=== PATIENT | female | born 1990 | race Caucasian/White ===

== ENCOUNTER 2018-10-13 17:10 | Emergency (ER) | payer OTHER, SELFPAY ==
[2018-10-13 17:13] VITALS: BP 127/71; PULSE 110; RESP 14; TEMP 37.1; O2SAT 99; BMI 29.0
--- NOTE | 2018-10-13 20:17 | ED_ITS ---
HPI - URI/Sore Throat <SHERRI Kay - Last Filed: 10/13/18 20:17> General Chief Complaint: Upper Respiratory Symptoms Stated Complaint: THROAT SWELLING AND FEVER Time Seen by Provider: 10/13/18 17:47 Source: patient Mode of arrival: ambulatory Limitations: no limitations History of Present Illness HPI Narrative: The patient is a 28-year-old female who presents with a chief complaint of losing her voice, sore throat congestion and ear pressure. She states this has been going on since Wednesday. She feels like she has fevers, as high as up to 102. She is concerned she has strep throat. She complains of nasal congestion and states she is susceptible to sinus infections. She states she feels like her throat is hot and swollen. She has taken some [id number]-[id number] medication to feel better. She denies any abdominal pain, nausea vomiting or diarrhea. Related Data Previous Rx's Medication Instructions Recorded benzonatate [Tessalon Perles] 100 mg PO BID PRN #20 cap 10/13/18 Allergies Allergy/AdvReac Type Severity Reaction Status Date / Time No Known Drug Allergies Allergy Verified 10/13/18 17:18 Review of Systems <SHERRI Kay - Last Filed: 10/13/18 20:17> Review of Systems GENERAL: See HPI HEENT: See HPI RESPIRATORY: Denies dyspnea, cough, wheezing, hemoptysis, sputum. CARDIOVASCULAR: Denies chest pain, palpitations, orthopnea, edema, GASTROINTESTINAL: Denies nausea, vomiting, abdominal pain, diarrhea, constipation, melena. : Denies dysuria, frequency, incontinence, hematuria, urinary retention. MUSCULOSKELETAL: denies weakness, joint pain, or bony pain SKIN: Denies rash, skin lesions, or other NEUROLOGIC: Denies weakness, headache, numbness, change in speech, confusion, seizures, incoordination. PSYCHIATRIC: No concerning psychosocial issues. 12 point review of systems is negative except for those stated above PFSH <SHERRI Kay - Last Filed: 10/13/18 20:17> Social History Smoking Status: Unknown if ever smoked Social History Smoking Status: Unknown if ever smoked Exam <SHERRI Kay - Last Filed: 10/13/18 20:17> Narrative Exam Narrative: GENERAL: This is a well-nourished, well-developed patient, in no acute distress HEAD: Atraumatic. Normocephalic. No temporal or scalp tenderness. EYES: Pupils equal round and reactive. Extraocular motions intact. No scleral icterus. No injection or drainage. ENT: Nose without bleeding, purulent drainage or septal hematoma. Throat without erythema, tonsillar hypertrophy or exudate. Uvula midline. Airway patent. Bilateral ear canals have cerumen impaction. TMs are barely visible, but appeared to be munoz. Bilateral ear canals within normal limits. Comp also noted in throat. NECK: Trachea midline. No JVD or lymphadenopathy. Supple, nontender, no meningeal signs. CARDIOVASCULAR: Regular rate and rhythm without murmurs, gallops, or rubs. RESPIRATORY: Clear to auscultation. Breath sounds equal bilaterally. No wheezes, rales, or rhonchi. Occasional cough noted on exam. No accessory muscle use. No stridor. No retractions. GASTROINTESTINAL: Abdomen soft, non-tender, nondistended. No hepato- splenomegaly, or palpable masses. No guarding. EXTREMITIES: No clubbing, cyanosis, or edema. No joint tenderness, effusion, or edema noted. BACK: Nontender without deformity or crepitance. No flank tenderness. NEURO: AOx3. SKIN: No rash or erythema. Initial Vital Signs Initial Vital Signs: Vital Signs Temperature 98.8 F 10/13/18 17:13 Pulse Rate 110 H 10/13/18 17:13 Respiratory Rate 14 10/13/18 17:13 Blood Pressure 127/71 10/13/18 17:13 Pulse Oximetry 99 10/13/18 17:13 <Briana Delcaruz MD - Last Filed: 10/13/18 20:53> Initial Vital Signs Initial Vital Signs: Vital Signs Temperature 98.8 F 10/13/18 17:13 Pulse Rate 110 H 10/13/18 17:13 Respiratory Rate 14 10/13/18 17:13 Blood Pressure 127/71 10/13/18 17:13 Pulse Oximetry 99 10/13/18 17:13 Course <JESSA Kay-BC - Last Filed: 10/13/18 20:17> Vital Signs - 8 hr 10/13/18 17:13 Temperature 98.8 F Pulse Rate 110 H Respiratory Rate 14 Blood Pressure 127/71 Pulse Oximetry 99 <Briana Delacruz MD - Last Filed: 10/13/18 20:53> Vital Signs - 8 hr 10/13/18 17:13 Temperature 98.8 F Pulse Rate 110 H Respiratory Rate 14 Blood Pressure 127/71 Pulse Oximetry 99 MDM - URI/Sore Throat <JESSA Kay-BC - Last Filed: 10/13/18 20:17> Lab Data Point of Care Testing Rapid Strep A Negative MDM Narrative Medical decision making narrative: The patient is a 28-year-old female who presents with chief complaint of sore throat and fever. She is afebrile on arrival. She has a negative strep test. Her exam was traits no acute bacterial etiology, likely viral, especially with losing her voice and the combination of sore throat and cough. The patient states she is susceptible to sinus infections, but I discussed that 4 days of symptoms do not warrant antibiotic treatment at this time. I discussed the use of sinus rinse, Flonase, Cepacol. I did give her a prescription of Tessalon Perles for cough. I discussed at length follow up with primary care provider especially if her symptoms continue. Discussed come back to ER for any acute concerns such as chest pain or shortness of breath. <Briana Delacruz MD - Last Filed: 10/13/18 20:53> Lab Data Point of Care Testing Rapid Strep A Negative Discharge Plan Departure Patient Disposition: Home Clinical Impression: Viral infection Discharge Date/Time: 10/13/18 18:35 Interventions: ED Discharge Assessment Last Done: 10/13/18 18:35 Instructions: DI for Viral Upper Respiratory Infection -- Adult Activity Restrictions/Additional Instructions: Your strep test was negative today. I suggest supportive measures such as Flonase, sinus rinse and Cepacol lozenges. I have given her prescription of a cough medicine. I suggest continuing [id number]-[id number] measures as well as honey and lemon. Please monitor for inability keep down fluids, continuing of symptoms for 2 weeks. Please follow up with primary care provider. Prescriptions: New benzonatate [Tessalon Perles] 100 mg capsule 100 mg PO BID PRN (Reason: cough) Qty: 20 RF: 0 Referrals: [facility] [Provider Group]
== END 2018-10-13 18:35 | disposition home or self-care (01) ==
PROVIDERS: Emergency Provider Nurse Practitioner Family
DX: B34.9 Viral infection, unspecified (principal)
CPT/HCPCS: 87880; 99282; 99283

== ENCOUNTER 2018-10-20 18:40 | Emergency (ER) | payer OTHER, SELFPAY ==
[2018-10-20 18:44] VITALS: BP 125/77; PULSE 101; RESP 18; TEMP 36.8; O2SAT 98; BMI 28.7
[2018-10-21 00:33] VITALS: BP 109/75; PULSE 98; RESP 16; O2SAT 99
--- NOTE | 2018-10-21 00:47 | ED.EAR ---
HPI - Ear Problem General Chief complaint: Ear Stated complaint: sick,fever,cough Time Seen by Provider: 10/21/18 00:29 Source: patient Mode of arrival: ambulatory Limitations: no limitations History of Present Illness HPI Narrative: The patient has had cough and congestion for 2 weeks. She has no fever. She has facial pain as well as hoarseness. She has no difficulty swallowing but does have discomfort. She has left ear pain for the last 2-3 days. She is a nonsmoker. She has no history of allergies. She has no history of recurrent sinusitis or infections. She has 2 children who are also ill. She has no chronic illnesses is on no medications Related Data Previous Rx's Medication Instructions Recorded amoxicillin 500 mg PO TID #30 cap 10/21/18 Allergies Allergy/AdvReac Type Severity Reaction Status Date / Time No Known Drug Allergies Allergy Verified 10/20/18 18:44 Review of Systems Review of Systems ROS Unobtainable: All systems reviewed & are unremarkable except as noted in HPI and below Eyes Denies eye discharge ENT Ears, Nose, Mouth, and Throat: Reports as per HPI, Reports otalgia, Reports facial pain, Reports hoarseness, Reports nasal congestion and Denies neck pain Cardiovascular Denies chest pain Respiratory Comments: 2. Cough Gastrointestinal Comments: No GI symptoms. Musculoskeletal Denies neck pain Integumentary/Breasts Denies rash [facility] Medical History (Updated 10/21/18 @ 00:52 by Milan Romano MD) No acute medical problems (Acute) Surgical History (Updated 10/21/18 @ 00:49 by Milan Romano MD) No pertinent past surgical history (Acute) Social History Smoking Status: Never smoker Social History Smoking Status: Never smoker Exam Initial Vital Signs Initial Vital Signs: Vital Signs Temperature 98.3 F 10/20/18 18:44 Pulse Rate 101 H 10/20/18 18:44 Respiratory Rate 18 10/20/18 18:44 Blood Pressure 125/77 10/20/18 18:44 Pulse Oximetry 98 10/20/18 18:44 Const General: cooperative, healthy appearing, comfortable and well developed Other: Occasional dry cough. HENMT Head: normocephalic and atraumatic Ears: external ears normal and TM's normal bilaterally Nose: external nose normal and nares normal Face and sinus: sinus tenderness ethmoid (Bilateral) and maxillary (Bilateral) Mouth: oral mucosae normal Throat: tonsils normal Eyes Conjunctivae: conjunctivae normal Neck Neck: full ROM and no meningeal signs Lymphatic: No lymphadenopathy Resp Auscultation: clear to auscultation bilaterally Cardio Rate: regular rate Rhythm: regular rhythm Heart Sounds: S1 normal, S2 normal and no murmurs Course Course Narrative: The patient has been started amoxicillin for pansinusitis. Mucinex is recommended. She will obtain this over the counter. Orders Ordered: Discontinued Medications Amoxicillin (Trimox) 500 mg PO NOW ONE Stop: 10/21/18 00:44 Vital Signs - 8 hr 10/20/18 18:44 10/21/18 00:33 Temperature 98.3 F Pulse Rate 101 H 98 H Respiratory Rate 18 16 Blood Pressure 125/77 Blood Pressure [Right Arm] 109/75 Pulse Oximetry 98 99 Discharge Plan Departure Patient Disposition: Home Clinical Impression: Acute pansinusitis Qualifiers: Recurrence: non-recurrent Qualified Code(s): J01.40 - Acute pansinusitis, unspecified Instructions: DI for Sinusitis Activity Restrictions/Additional Instructions: Amoxicillin 500 mg 3 times daily. Take Tylenol or Advil as needed for pain. Use dex is available over the counter, uses per package instructions. Not follow up with her doctor next week if no better, return here as necessary. Prescriptions: New amoxicillin 500 mg capsule 500 mg PO TID Qty: 30 RF: 0
[2018-10-21] MEDS: AMOXICILLIN 250 MG CAPSULE 500 MG PO (01:01)
== END 2018-10-21 01:24 | disposition home or self-care (01) ==
PROVIDERS: Emergency Provider Emergency Medicine
DX: J01.40 Acute pansinusitis, unspecified (principal)
CPT/HCPCS: 99282; 99283